=== PATIENT | female | born 1990 | race Two or more races ===

== ENCOUNTER 2025-02-25 15:01 | Outpatient (AMB) | payer BC, MEDICAID, SELFPAY ==
[2025-02-25 15:24] VITALS: BP 110/63; PULSE 66; RESP 14; TEMP 36.3; O2SAT 98; BMI 26.8
--- NOTE | 2025-02-25 15:24 | OBCLNT_ITS ---
Vital Signs 02/25/25 15:24 Height 1.63 m Height Method Stated Weight 70.817 kg Weight Measurement Method Standing Scale BMI 26.8 BP 110/63 Blood Pressure Source Automatic Cuff Blood Pressure Location Left Upper Arm Position Sitting Respiration 14 Pulse 66 Pulse Source Monitor Temp 97.3 F Temp Source Oral Pulse Oximetry (%) 98 Oxygen Delivery Method Room Air Allergies/Home Meds Allergies & Medications Allergies No Known Allergies Allergy (Verified 02/25/25 15:25) Medication Reconciliation folic acid 1 mg tablet 1 mg PO QDAY 02/25/25 [History Confirmed 02/25/25] vitamins no.2 162 mg-115.2 mg (106 mg)-1 mg capsule cap PO 02/25/25 [History Confirmed 02/25/25] Intake Visit Data Collection New Patient or Established: New Patient not seen in past 3 years at [facility] (considered New) Reason for Visit:: REFERRAL INITIAL CARE Seen by Clinical Staff ONLY (RN/MA): No Bell Tier Required: No Do You Feel Safe at Home: Yes Authorities Contacted: N/A PCP or OBGYN visit in last 3 months: Yes Hx Now: Yes Are you currently on any form of Control: No Last menstrual period: 07/06/24 Pain Present Currently: No Pain Scale Used: Paulino-Soto/Numerical Pain scale:: 0 Smoking Status Smoking Status: Never smoker Immunizations Flu Vaccine in the Last 12 Months: No Flu Vaccine Exclusion Criteria: Refused by Patient Questionnaires Covid-19 Vaccine Questionnaire Has patient been vacinated for Covid-19 Have you been vacinated for Covid-19: No PHQ-9 PHQ-2 Over the last 2 weeks, how often have you been bothered by any of the following problems? 1. Little interest or pleasure in doing things: not at all 2. Feeling down, depressed, or hopeless: not at all Total score: 0 PHQ-9 3. Trouble falling or staying asleep, or sleeping too much: Not at all 4. Feeling tired or having little energy: Not at all 5. Poor appetite or overeating: Not at all 6. Feeling bad about yourself - or that you are a failure or have let yourself or your family down: Not at all 7. Trouble concentrating on things, such as reading the newspaper or watching television: Not at all 8. Moving or speaking so slowly that other people could have noticed? - Or the opposite - being so fidgety or restless that you have been moving around a lot more than usual: not at all 9. Thoughts that you would be better off or of hurting yourself in some way: Not at all Total score: 0 Source: Developed by Drs. Mikel Guadalupe, Rosie Horton, Garth Hunt and colleagues, with an educational becky from [employer]. Depression screen completed yes Social History Living Situation History Lives With: Family Housing: House Tobacco History Smoking Status: Never smoker Second Hand Smoke Exposure: No Alcohol History Alcohol Intake: Former Alcohol Intake Frequency: holidays/special occasions only Domestic Abuse History Do You Feel Safe at Home: Yes History of Present Illness HPI Narrative 34-year-old 1 para 0 for OBI. Patient is a transfer of care from [facility]. She has minimal records. Her last. July 06, 2024. And her EDC April 11, 2025. So patient is 33 weeks today. Reports movement. Denies leaking, bleeding, contractions. She had labs drawn but [facility] side is down so I cannot get them. Her 1 hour GTT was elevated. The 3-hour all the values except the 1 hour was high. So patient passed her 3-hour GTT. NIPT Carrier screens and AFP all normal. Patient RPR was negative. History of hypothyroid. Patient has not been taking her thyroid medication and her thyroid levels have been normal. Her TSH was 2.9 and did not reflex at the T4. A1c was 5.1. Denies leaking or bleeding. No contractions. Reports movement. Patient has implants. She denies social habits. Patient has had several ultrasounds with Dr. Tubbs because of advanced maternal age. The first ultrasound October 10. Was for NT scan. She will a 9 the baby was measuring 13 weeks 6 days and this confirmed EDC. And then patient also had an ultrasound for anatomy scan on November 28. Baby was 21 weeks and 1 day. Measuring the 67th percentile with normal anatomy. OB Initial Visit OB Flowsheet OB Flowsheet Initial Weight: Not Recorded Date -?-?-?-?-?-?-?-?-?-?-?-?- EGA Weight BP Alb Glu CTX Pres Fundal ht FHR Mov Dilation Station Effacement Hx Notes Visit Note 02/25/25 -?-?-?-?-?-?-?-?-?-?-?-?- 33w 6d 70.817 kg 110/63 absent cephalic 33 145 active 34-year-old 1 para 0 for OB. Transfer from [facility] with incomplete records. Patient is 33 weeks and 2 today. LMP July 06, 2024. Estimated due date April 11, 2025. That was confirmed by an NT scan and her anatomy scan. [facility] was down today so I cannot tell you about her labs. Patient has a follow-up MFM appointment March [address] Tubbs's office for sono results. Follow- up MFM appointment March 06. Discussed labor precautions. Kick count twice a day. Return in 2 weeks OB check Menstrual History Menstrual reliability: definite Flow: normal Menstrual regularity: regular Monthly: Yes Age at menarche: 11 On control pills at conception: No Associated symptoms (LMP): Denies amenorrhea, nausea, vomiting, fatigue, breast tenderness, urinary frequency, irritability, bloating or other OB History : 1 Infection History & Risk Evaluation History of STDs: none Genetic Screening & History Genetic Screening/Teratology Counseling - Includes patient, baby's father, or anyone in either family with: 1. Patient's age 35 years or older as of estimated date of delivery: Yes 2. Thalassemia (Kazakh, Belarusian, Mediterranean, or Background); MCV less than 80: No 3. Neural Tube Defect (Meningomyelocele, Spina Bifida, or Anencephaly): No 4. Congenital Heart Defect: No 5. Down Syndrome: No 6. Robe-Sachs (Ashkenazi Jainism, Cajun, Z[place]ian [place]): No 7. Woodrow Disease (Ashkenazi Jainism): No 8. Familial Dysautonomia (Ashkenazi Jainism): No 9. Sickle Cell Disease or Trait (): No 10. Hemophilia or other blood disorders: No 11. Muscular Dystrophy: No 12. Cystic Fibrosis: No 13. Jewels's Chorea: No 14. Mental Retardation/Autism: No 15. Other inherited genetic or chromosomal disorder: No 16. Maternal Metabolic Disorder (EG,TYPE 1 Diabetes, PKU): No 17. Patient or baby's father had a child with defects not listed above: No 18. Recurrent loss or a stillbirth: No 19. Medications (including supplements, vitamins, herbs or otc drugs)/illicit/recreational drugs/alcohol since last menstrual period: No 20. Any other: No Infection History 1. Live with someone with TB or exposed to TB: No 2. Rash or viral illness since last menstrual period: No 3. Hepatitis B,C: No Other (see comments) Source: [employer] Review of Systems Review of Systems Systems Reviewed: All systems reviewed, normal except as documented Constitutional Constitutional: Denies fatigue Gastrointestinal Gastrointestinal: Denies bloating, Denies nausea and Denies vomiting Genitourinary Genitourinary: Denies amenorrhea and Denies urinary frequency Psychiatric Psychiatric: Denies irritability Endocrine Endocrine: Denies fatigue Exam General Limitations: no limitations General Appearance: alert, in no apparent distress, comfortable, cooperative, healthy appearing, well developed and well groomed Head Head exam: atraumatic, normocephalic and normal inspection ENT ENT exam: Present normal exam, normal oropharynx and mucous membranes moist Neck Neck exam: Present normal inspection, full ROM and trachea midline Chest Chest inspection: Present normal inspection and symmetric chest wall rise Resp Respiratory exam: Present normal lung sounds bilaterally Card Cardiovascular exam: Present regular rate, normal rhythm and normal heart sounds Psych Psychiatric exam: Present normal affect and normal mood Office Procedures OBC Clinic LOC & Office Proc's Nursing/Assessment Patient Status: Established Patient OB Clinic Nursing Assessment: Medication Reconciliation, Update PMH in EMR and Vital Signs OB Clinic Coordination of Care: AMA, Complex Care and Chronic Disease 1-5, Consent,records obtained, informed consent, Education Simp Pt/Fam, 1 Ins Authorization, Lab and Imaging orders, Results/Orders obtained and Staff clarify orders Special Needs: Heart tones Established Patient Charge Established Patient Point Assignment: 170 Established Patient Point Charge: EP Level 5 (160-above) Assessment & Plan Diagnosis / Problem List (1) Encounter for supervision of high risk in third trimester, antepartum: Status: Acute (2) Advanced maternal age (AMA) in : Status: Acute Plan labor precautions discussed. We called Dr. Tubbs's office for sono results. We will call [facility] for patient's lab results. Increase fluids. Return in 2 weeks OB check Additional Plan Follow Up: 2 Weeks (obc)
== END 2025-02-25 15:54 | disposition home or self-care (01) ==
LOC: HODSOBC 15:01
PROVIDERS: Supervising Provider Advanced Practice Midwife; Visit Provider Advanced Practice Midwife
DX: O09.513 Supervision of elderly primigravida, third trimester (principal); Z3A.33 33 weeks gestation of pregnancy
CPT/HCPCS: 99215; G0463

== ENCOUNTER 2025-03-15 14:14 | Outpatient (AMB) | payer BC, MEDICAID, SELFPAY ==
[2025-03-15 14:27] VITALS: BP 117/67; PULSE 82; RESP 16; TEMP 36.4; O2SAT 98; BMI 27.3
--- NOTE | 2025-03-15 14:27 | OBCLNT_ITS ---
Vital Signs 03/15/25 14:27 Height 1.63 m Height Method Stated Weight 72.745 kg Weight Measurement Method Standing Scale BMI 27.3 BP 117/67 Blood Pressure Source Automatic Cuff Blood Pressure Location Left Upper Arm Position Sitting Respiration 16 Pulse 82 Pulse Source Monitor Temp 97.6 F Temp Source Oral Pulse Oximetry (%) 98 Oxygen Delivery Method Room Air Allergies/Home Meds Allergies & Medications Allergies No Known Allergies Allergy (Verified 03/15/25 14:28) Medication Reconciliation folic acid 1 mg tablet 1 mg PO QDAY 02/25/25 [History Confirmed 03/15/25] vitamins no.2 162 mg-115.2 mg (106 mg)-1 mg capsule cap PO 02/25/25 [History Confirmed 03/15/25] Immunizations Immunizations Flu Vaccine in the Last 12 Months: Yes Flu Vaccine Exclusion Criteria: Refused by Patient Care OB Visit Log OB Flowsheet Initial Weight: Not Recorded Date -?-?-?-?-?-?-?-?-?-?-?-?- EGA Weight BP Alb Glu CTX Pres Fundal ht FHR Mov Dilation Station Effacement Hx Notes Visit Note 02/25/25 -?-?-?-?-?-?-?-?-?-?-?-?- 33w 6d 70.817 kg 110/63 absent cephalic 33 145 active 34-year-old 1 para 0 for OB. Transfer from [facility] with incomplete records. Patient is 33 weeks and 2 today. LMP July 06, 2024. Estimated due date April 11, 2025. That was confirmed by an NT scan and her anatomy scan. [facility] was down today so I cannot tell you about her labs. Patient has a follow-up MFM appointment March [address] Tubbs's office for sono results. Follow- up MFM appointment March 06. Discussed labor precautions. Kick count twice a day. Return in 2 weeks OB check 03/15/25 -?-?-?-?-?-?-?-?-?-?-?-?- 36w 3d 72.745 kg 117/67 absent cephalic 36 140 active Fetus active. Denies leaking, bleeding contractions G BS today. Discussed labor precautions. Kick count twice a day. Review danger signs and symptoms and ER precautions. Return week OB check RAMILA Calculator Estimated Delivery Date Method Current WG Current Estimate 04/09/25 Ultrasound #2 36w 3d Other Estimates 04/12/25 LMP (Certain) 36w 0d 04/11/25 Ultrasound #1 36w 1d 04/11/25 Manual 36w 1d final ramila: Notes Visit Date: 02/25/25 Last Updated by: Josette Maurer, CNChata 34 yo . lmp: 07/06/24, EDC 04/11/25, 1 hr gtt/high. 3 hr gtt was normal. . carrier screen-/AFP-. RPR::NR Office Procedures OBC Clinic LOC & Office Proc's Nursing/Assessment Patient Status: Established Patient OB Clinic Nursing Assessment: Medication Reconciliation, Update PMH in EMR and Vital Signs OB Clinic Coordination of Care: AMA, Complex Care and Chronic Disease 1-5, Consent,records obtained, informed consent, Education Simp Pt/Fam, 1 Ins Authorization, Lab and Imaging orders, Results/Orders obtained and Staff clarify orders Special Needs: Heart tones Miscellaneous Interventions: Culture Specimen Collection Established Patient Charge Established Patient Point Assignment: 185 Established Patient Point Charge: EP Level 5 (160-above) Assessment & Plan Diagnosis / Problem List (1) Encounter for supervision of high risk in third trimester, antepartum: Status: Acute (2) Advanced maternal age (AMA) in : Status: Acute Plan GBS today. Discussed labor precautions. Kick count twice a day. Reviewed danger signs symptoms ER precautions return week OB check Additional Plan Follow Up: 1 Week (obc)
== END 2025-03-15 14:50 | disposition home or self-care (01) ==
LOC: HODSOBC 14:14
PROVIDERS: Supervising Provider Advanced Practice Midwife; Visit Provider Advanced Practice Midwife
DX: O09.513 Supervision of elderly primigravida, third trimester (principal); Z3A.36 36 weeks gestation of pregnancy; Z36.85 Encounter for antenatal screening for Streptococcus B
CPT/HCPCS: 99215; G0463

== ENCOUNTER 2025-03-29 13:52 | Outpatient (AMB) | payer BC, MEDICAID, SELFPAY ==
[2025-03-29 14:08] VITALS: BP 125/77; PULSE 86; RESP 14; TEMP 36.4; O2SAT 98; BMI 27.5
--- NOTE | 2025-03-29 14:08 | OBCLNT_ITS ---
Vital Signs 03/29/25 14:08 Height 1.63 m Height Method Stated Weight 73.198 kg Weight Measurement Method Standing Scale BMI 27.5 BP 125/77 Blood Pressure Source Automatic Cuff Blood Pressure Location Left Upper Arm Position Sitting Respiration 14 Pulse 86 Pulse Source Monitor Temp 97.6 F Temp Source Oral Pulse Oximetry (%) 98 Oxygen Delivery Method Room Air Allergies/Home Meds Allergies & Medications Allergies No Known Allergies Allergy (Verified 03/29/25 14:09) Medication Reconciliation folic acid 1 mg tablet 1 mg PO QDAY 02/25/25 [History Confirmed 03/29/25] vitamins no.2 162 mg-115.2 mg (106 mg)-1 mg capsule cap PO 02/25/25 [History Confirmed 03/29/25] Immunizations Immunizations Flu Vaccine in the Last 12 Months: No Flu Vaccine Exclusion Criteria: Refused by Patient Care OB Visit Log OB Flowsheet Initial Weight: Not Recorded Date -?-?-?-?-?-?-?-?-?-?-?-?- EGA Weight BP Alb Glu CTX Pres Fundal ht FHR Mov Dilation Station Effacement Hx Notes Visit Note 02/25/25 -?-?-?-?-?-?-?-?-?-?-?-?- 33w 6d 70.817 kg 110/63 absent cephalic 33 145 active 34-year-old 1 para 0 for OB. Transfer from [facility] with incomplete records. Patient is 33 weeks and 2 today. LMP July 06, 2024. Estimated due date April 11, 2025. That was confirmed by an NT scan and her anatomy scan. [facility] was down today so I cannot tell you about her labs. Patient has a follow-up MFM appointment March [address] Tubbs's office for sono results. Follow- up MFM appointment March 06. Discussed labor precautions. Kick count twice a day. Return in 2 weeks OB check 03/15/25 -?-?-?-?-?-?-?-?-?-?-?-?- 36w 3d 72.745 kg 117/67 absent cephalic 36 140 active Fetus active. Denies leaking, bleeding contractions G BS today. Discussed labor precautions. Kick count twice a day. Review danger signs and symptoms and ER precautions. Return week OB check 03/29/25 -?-?-?-?-?-?-?-?-?-?-?-?- 38w 3d 73.198 kg 125/77 absent cephalic 37 155 active Reports good movement. Occasional contraction and pressure. Denies leaking or bleeding Kick count twice a day. Discussed labor precautions. Discussed ER precautions. Discussed comfort measures for labor. Return in a week OB check RAMILA Calculator Estimated Delivery Date Method Current WG Current Estimate 04/09/25 Ultrasound #2 38w 3d Other Estimates 04/12/25 LMP (Certain) 38w 0d 04/11/25 Ultrasound #1 38w 1d 04/11/25 Manual 38w 1d final ramila: ,03/06: EFW:68% Notes Visit Date: 03/29/25 Last Updated by: Josette Maurer CNM GBS- Visit Date: 02/25/25 Last Updated by: Josette Maurer CNM 34 yo . lmp: 07/06/24, EDC 04/11/25, 1 hr gtt/high. 3 hr gtt was normal. . carrier screen-/AFP-. RPR::NR Office Procedures OBC Clinic LOC & Office Proc's Nursing/Assessment Patient Status: Established Patient OB Clinic Nursing Assessment: Medication Reconciliation, Update PMH in EMR and Vital Signs OB Clinic Coordination of Care: AMA, Complex Care and Chronic Disease 1-5, Consent,records obtained, informed consent, Education Simp Pt/Fam, 1 Ins Authorization, Lab and Imaging orders, Results/Orders obtained and Staff clarify orders Special Needs: Heart tones Established Patient Charge Established Patient Point Assignment: 170 Established Patient Point Charge: EP Level 5 (160-above) Assessment & Plan Diagnosis / Problem List (1) Encounter for supervision of high risk in third trimester, a ntepartum: Status: Acute (2) Advanced maternal age (AMA) in : Status: Acute Plan Discussed labor precautions. Kick count twice a day. Discussed ER precautions and danger signs symptoms. Discussed comfort measures early labor. Return in a week Additional Plan Follow Up: 1 Week (obc)
== END 2025-03-29 14:37 | disposition home or self-care (01) ==
LOC: HODSOBC 13:52
PROVIDERS: Supervising Provider Advanced Practice Midwife; Visit Provider Advanced Practice Midwife
DX: O09.513 Supervision of elderly primigravida, third trimester (principal); Z3A.38 38 weeks gestation of pregnancy; Z28.21 Immunization not carried out because of patient refusal
CPT/HCPCS: 99215; G0463

== ENCOUNTER 2025-04-03 14:46 | Outpatient (AMB) | payer BC, MEDICAID, SELFPAY ==
--- NOTE | 2025-04-03 14:57 | OBCLNT_ITS ---
Vital Signs 04/03/25 14:58 Height 1.63 m Height Method Stated Weight 71.441 kg Weight Measurement Method Standing Scale BMI 26.9 BP 124/85 H Blood Pressure Source Automatic Cuff Blood Pressure Location Left Upper Arm Position Sitting Respiration 14 Pulse 69 Pulse Source Monitor Temp 97.3 F Temp Source Oral Pulse Oximetry (%) 98 Oxygen Delivery Method Room Air Allergies/Home Meds Allergies & Medications Allergies No Known Allergies Allergy (Verified 04/03/25 15:04) Medication Reconciliation folic acid 1 mg tablet 1 mg PO QDAY 02/25/25 [History Confirmed 04/03/25] vitamins no.2 162 mg-115.2 mg (106 mg)-1 mg capsule cap PO 02/25/25 [History Confirmed 04/03/25] Immunizations Immunizations Flu Vaccine in the Last 12 Months: No Flu Vaccine Exclusion Criteria: Refused by Patient Care OB Visit Log OB Flowsheet Initial Weight: Not Recorded Date -?-?-?-?-?-?-?-?-?-?-?-?- EGA Weight BP Alb Glu CTX Pres Fundal ht FHR Mov Dilation Station Effacement Hx Notes Visit Note 02/25/25 -?-?-?-?-?-?-?-?-?-?-?-?- 33w 6d 70.817 kg 110/63 absent cephalic 33 145 active 34-year-old 1 para 0 for OB. Transfer from [facility] with incomplete records. Patient is 33 weeks and 2 today. LMP July 06, 2024. Estimated due date April 11, 2025. That was confirmed by an NT scan and her anatomy scan. [facility] was down today so I cannot tell you about her labs. Patient has a follow-up MFM appointment March [address] Tubbs's office for sono results. Follow- up MFM appointment March 06. Discussed labor precautions. Kick count twice a day. Return in 2 weeks OB check 03/15/25 -?-?-?-?-?-?-?-?-?-?-?-?- 36w 3d 72.745 kg 117/67 absent cephalic 36 140 active Fetus active. Denies leaking, bleeding contractions G BS today. Discussed labor precautions. Kick count twice a day. Review danger signs and symptoms and ER precautions. Return week OB check 03/29/25 -?-?-?-?-?-?-?-?-?-?-?-?- 38w 3d 73.198 kg 125/77 absent cephalic 37 155 active Reports good movement. Occasional contraction and pressure. Denies leaking or bleeding Kick count twice a day. Discussed labor precautions. Discussed ER precautions. Discussed comfort measures for labor. Return in a week OB check 04/03/25 -?-?-?-?-?-?-?-?-?-?-?-?- 39w 1d 71.441 kg 124/85 occasional cephalic 38 155 active 0.5 -3 25 L/post/soft, fetus active. Increased pressure, occasional contraction. Denies leaking or bleeding Discussed co mfort measures for early labor. Kick count tw ice a day. Discussed danger signs symptoms and return in a week OB check RAMILA Calculator Estimated Delivery Date Method Current WG Current Estimate 04/09/25 Ultrasound #2 39w 1d Other Estimates 04/12/25 LMP (Certain) 38w 5d 04/11/25 Ultrasound #1 38w 6d 04/11/25 Manual 38w 6d final ramila: ,03/06: EFW:68% Notes Visit Date: 03/29/25 Last Updated by: Josette Maurer CNM GBS- Visit Date: 02/25/25 Last Updated by: Josette Maurer CNM 34 yo . lmp: 07/06/24, EDC 04/11/25, 1 hr gtt/high. 3 hr gtt was normal. . carrier screen-/AFP-. RPR::NR Office Procedures OBC Clinic LOC & Office Proc's Nursing/Assessment Patient Status: Established Patient OB Clinic Nursing Assessment: Medication Reconciliation, Update PMH in EMR and Vital Signs OB Clinic Coordination of Care: AMA, Complex Care and Chronic Disease 1-5, Consent,records obtained, informed consent, Education Simp Pt/Fam, 1 Ins Authorization, Lab and Imaging orders, Results/Orders obtained and Staff clarify orders Special Needs: Heart tones Miscellaneous Interventions: Pelvic no cultures Established Patient Charge Established Patient Point Assignment: 180 Established Patient Point Charge: EP Level 5 (160-above) Assessment & Plan Diagnosis / Problem List (1) Advanced maternal age (AMA) in : Status: Acute (2) Encounter for supervision of high risk in third trimester, antepartum: Status: Acute Plan Discussed labor precautions. Kick count twice a day. Discussed danger signs symptoms ER precautions return week OB check Additional Plan Follow Up: 1 Week (obc)
[2025-04-03 14:58] VITALS: BP 124/85; PULSE 69; RESP 14; TEMP 36.3; O2SAT 98; BMI 26.9
== END 2025-04-03 15:13 | disposition home or self-care (01) ==
LOC: HODSOBC 14:46
PROVIDERS: Supervising Provider Advanced Practice Midwife; Visit Provider Advanced Practice Midwife
DX: O09.513 Supervision of elderly primigravida, third trimester (principal); Z3A.39 39 weeks gestation of pregnancy; Z28.21 Immunization not carried out because of patient refusal
CPT/HCPCS: 99215; G0463